=== PATIENT | male | born 1970 | race Caucasian/White ===

== ENCOUNTER 2021-01-01 18:41 | Emergency (ER) | payer SELFPAY ==
[~2021-01-01] VITALS: Ht 190.5 cm; Wt 95.0 kg
--- NOTE | 2021-01-01 18:56 | NUR ---
PT EPIFANIO AGARWAL. PT TOOK 90 UNITS NOVOLOG IN ATTEMPT TO KILL HIMSELF. AFTER GIVING HIMSELF THE INSULIN, PT ATE PIZZA AND A CINNAMON ROLL AND CALLED 911. 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 PT STATED THAT HE HAS HAD PREVIOUS SUICIDE ATTEMPTS BEFORE WITH MEDICATION OVERDOSES RESULTING IN ICU STAYS.
--- NOTE | 2021-01-01 18:59 | NUR ---
REPORT GIVEN TO ALISON MCNAIR
--- NOTE | 2021-01-01 19:07 | NUR ---
[place] crawford provided from cafe to patient. Call sania in reach. Pt agrees with safety contract.
[2021-01-01 19:24] LABS: ALANINE AMINOTRANSFERASE 74 U/L (12-78); ALBUMIN 3.8 g/dL (3.4-5.0); ANION GAP 8 mmol/L (5-15); CALCIUM 9.4 mg/dL (8.5-10.1); CHLORIDE 108 mmol/L (98-107); CREATININE 1.17 mg/dL (0.7-1.3)
[2021-01-01 19:25] LABS: BASOPHILS % (AUTO) 1 % (0-1); EOSINOPHILS % (AUTO) 1 % (1-7); LYMPHOCYTES % (AUTO) 30 % (22-44); MEAN CORPUSCULAR HEMOGLOBIN 29.8 pg (27.5-34.5); MEAN CORPUSCULAR HGB CONC 35.7 g/dL (33.2-36.2); MEAN PLATELET VOLUME 6.9 fL (7.4-10.4); MONOCYTES % (AUTO) 5 % (2-9); NEUTROPHILS % (AUTO) 64 % (42-75); PLATELET COUNT 210 x10^3/uL (130-400); RED BLOOD COUNT 5.34 x10^6/uL (4.38-5.82); RED CELL DISTRIBUTION WIDTH 13.5 % (9.4-14.8)
[2021-01-01 19:26] LABS: MD NO
[2021-01-01 19:27] LABS: ALKALINE PHOSPHATASE 69 U/L (45-117); BILIRUBIN,TOTAL 0.6 mg/dL (0.2-1.0); SALICYLATE LEVEL < 1.7 mg/dL (2.8-20.0); TOTAL PROTEIN 7.4 g/dL (6.4-8.2)
--- NOTE | 2021-01-01 20:05 | NUR ---
Repeat BG 140,, pt ate 100% sandwich. Pt allowed sister to be informed of POC, sister allowed in to visit with patient for short period of time. Pt remains cooperative.
--- NOTE | 2021-01-01 20:20 | NUR ---
Tele psych moved to room, Pt remains a/ox4 calm, cooperative, drinking water to provide urine sample. Sister at bedside=allowed by this nurse.
--- NOTE | 2021-01-01 20:55 | NUR ---
Telepsych [id number] at bedside, requested sister to wait room for consult.
--- NOTE | 2021-01-01 21:09 | NUR ---
Still waiting for telepsych. Pt remains, awake, alert and oriented.
--- NOTE | 2021-01-01 21:24 | NUR ---
BG 110 now. Registration at bedside. Still waiting for telepsych to come through. Darya informed.
--- NOTE | 2021-01-01 21:52 | NUR ---
Still waiting for telepsych. Sister allowed back in, will step out when telepsych comes through. Pt states still can't provide urine, he has had 4 cups water. C/o slight headache from crying all day.
--- NOTE | 2021-01-01 22:43 | NUR ---
Online with telepsych now.
[2021-01-01 22:53] LABS: AMPHETAMINE SCREEN, URINE Negative (Negative); BARBITURATE SCREEN, URINE Negative (Negative); BENZODIAZEPINE SCREEN, URINE Negative (Negative); CANNABINOID SCREEN, URINE Negative (Negative); COCAINE SCREEN, URINE Negative (Negative); METHADONE SCREEN, URINE Negative (Negative); OPIATE SCREEN, URINE Negative (Negative)
--- NOTE | 2021-01-01 22:56 | NUR ---
Telepsych on phone with sister now. PAHelenC updated.
--- NOTE | 2021-01-01 23:24 | NUR ---
Ronna Ndiaye [phone] sister of patient, very reliable, support person would like to remain active in care.
--- NOTE | 2021-01-01 23:33 | NUR ---
Pt became very angry, upset, yelling when updated that hold remains. Security was called, no need for restraints chemical or physical, pt allowed to process what's going on. Will continue to monitor.
[2021-01-01] MEDS ORDERED: ACETAMINOPHEN 500 MG TABLET ONE (23:36)
--- NOTE | 2021-01-01 23:54 | NUR ---
Verbal from Dr robles tylenol 1000mg po.
[2021-01-02] MEDS ORDERED: ACETAMINOPHEN 500 MG TABLET PO ONE
--- NOTE | 2021-01-02 00:09 | NUR ---
Discussed case with Echo, Voice Intercept Technician. CN aware as well. BG 74
--- NOTE | 2021-01-02 01:09 | NUR ---
Reporrt to daysi rn
--- NOTE | 2021-01-02 01:11 | NUR ---
REPORT FROM XU ROSAS
--- NOTE | 2021-01-02 01:20 | NUR ---
packet faxed to [facility]
--- NOTE | 2021-01-02 01:36 | NUR ---
PT AMBULATORY WITH STEADY GAIT TO BATHROOM. PT MOVED FROM ED GURNEY TO HOSPITAL BED, TOLERATED WELL. PT DENIES ANY ADDITIONAL NEEDS AT THIS TIME. SAFETY FELIX DOWN, SAFETY PRECAUTIONS IN PLACE AND SITTER IN VIEW.
--- NOTE | 2021-01-02 06:58 | NUR ---
REPORT FROM ALISON ALAS
--- NOTE | 2021-01-02 06:58 | NUR ---
BEDSIDE REPORT TO LINDA ROSAS
[2021-01-02 07:37] VITALS: BP 153/102
--- NOTE | 2021-01-02 08:09 | NUR ---
BREAKFAST TRAY DELIVERED. VSS, ALL NEEDS MET AT THIS TIME.
--- NOTE | 2021-01-02 08:15 | NUR ---
PT MELINA MENARD DELIVERED. PT IN SECURE ROOM WITH SITTER IN LINE OF SITE. NAD. ALL NEEDS MET AT THIS TIME.
--- NOTE | 2021-01-02 10:07 | NUR ---
PT LAYING ON BACK ON HOSPITAL BED WITH EYES CLOSED. EVEN RISE AND FALL OF CHEST NOTED. NAD.
--- NOTE | 2021-01-02 10:08 | NUR ---
PT OUTSIDE ROOM IN LINE OF SIGHT.
[2021-01-02] MEDS ORDERED: BUPR-86 PO (13:14)
[2021-01-02] MEDS ORDERED: ESCI10TA97 PO (13:14)
[2021-01-02] MEDS ORDERED: ESCITALOPRAM 10MG TABLET PO ONE (14:00)
[2021-01-02] MEDS ORDERED: BUPROPION 75 MG TABLET PO ONE (14:00)
== END 2021-01-02 13:36 | disposition home or self-care (01) ==
LOC: ED 19:11
DX: F33.9 Major depressive disorder, recurrent, unspecified (principal); E11.9 Type 2 diabetes mellitus without complications
CPT/HCPCS: 36415; 80053; 80143; 80179; 80307; 80320; 82962; 85025; 99285; G0480